=== PATIENT | female | born 1965 | race Hispanic/Latino ===

== ENCOUNTER 2018-10-17 15:47 | Emergency (ER) | payer BC ==
[2018-10-17 15:53] VITALS: BMI 28.3
[2018-10-17 15:56] VITALS: TEMP 98.6
[2018-10-17 16:34] VITALS: RESP 18
[2018-10-17] MEDS ORDERED: Lidocaine 1% 5ml Abboject ONE (16:47)
--- NOTE | 2018-10-17 17:43 | ED PDOC ---
Arrival/HPI - General Historian: Patient - History of Present Illness Narrative History of Present Illness (Text): Patient is a 53 yr old F with PMH anxiety who presents today after tripping while holding a glass which shattered and cut her left wrist. Patient states she did not hit her head or lose consciousness at the time of the incident. She denies an actual fall and indicates that it was " more like she tripped and the glass hit something and broke before she could regain her balance". Patient otherwise denies headache, dizziness, confusion, chest pain, shortness of breath, cough, abdominal pain, f/c, n/v, and numbness/weakness in extremities. She states she has been able to use and feel her hand normally throughout this time. She is concerned that there may be glass in the wound. 10/17/18 18:00 Time/Duration: Prior to Arrival, 1/2 hour Symptom Onset: Sudden Symptom Course: Improving (bleeding well controlled) Quality: Pressure Severity Level: 4 Context: Standing, Walking, Tripped <Chitra Fernandez - Last Filed: 10/17/18 17:39> <Nigel Varghese - Last Filed: 10/17/18 20:45> - General Chief Complaint: Abnormal Skin Integrity Past Medical History - Provider Review Nursing Documentation Reviewed: Yes - Infectious Disease Hx of Infectious Diseases: None - Reproductive Menopause: Yes - Cardiac Hx Cardiac Disorders: No - Pulmonary Hx Respiratory Disorders: No - Neurological Hx Neurological Disorder: No - HEENT Hx HEENT Disorder: No - Renal Hx Renal Disorder: No - Endocrine/Metabolic Hx Endocrine Disorders: No - Hematological/Oncological Hx Blood Disorders: No - Integumentary Hx Dermatological Disorder: No - Musculoskeletal/Rheumatological Hx Musculoskeletal Disorders: No - Gastrointestinal Hx Gastrointestinal Disorders: No - Genitourinary/Gynecological Hx Genitourinary Disorders: No - Psychiatric Hx Psychophysiologic Disorder: Yes Hx Anxiety: Yes Hx Substance Use: No <Chitra Fernandez - Last Filed: 10/17/18 17:39> Family/Social History - Physician Review Nursing Documentation Reviewed: Yes Family/Social History: Unknown Family HX Smoking Status: Never Smoked Hx Alcohol Use: Yes Frequency of alcohol use: Socially Hx Substance Use: No <Chitra Fernandez - Last Filed: 10/17/18 17:39> Allergies/Home Meds <Chitra Fernandez - Last Filed: 10/17/18 17:39> <Nigel Varghese - Last Filed: 10/17/18 20:45> Allergies/Adverse Reactions: Allergies No Known Allergies Allergy (Verified 10/17/18 15:59) Home Medications: Home Meds Medication Instructions Recorded Confirmed FLUoxetine [Prozac] 5 mg PO DAILY 10/17/18 10/17/18 Review of Systems - Physician Review All systems were reviewed & negative as marked: Yes - Review of Systems Constitutional: Normal. absent: Fatigue Respiratory: absent: SOB, Cough Cardiovascular: absent: Chest Pain Gastrointestinal: absent: Abdominal Pain Musculoskeletal: Other (left wrist pain). absent: Arthralgias, Joint Swelling Skin: Laceration Neurological: absent: Headache, Dizziness, Focal Weakness Endocrine: absent: Diaphoresis <Chitra Fernandez - Last Filed: 10/17/18 17:39> Physical Exam Vital Signs Temp Pulse Resp BP Pulse Ox 10/17/18 16:22 84 18 161/91 H 97 10/17/18 15:53 98.6 F 79 16 161/91 H 100 Temperature: Afebrile Blood Pressure: Hypertensive Pulse: Regular Respiratory Rate: Normal Appearance: Positive for: Well-Appearing, Non-Toxic, Comfortable Pain Distress: Mild Mental Status: Positive for: Alert and Oriented X 3 - Systems Exam Head: Present: Atraumatic, Normocephalic Extroacular Muscles: Present: EOMI Mouth: Present: Moist Mucous Membranes Neck: Present: Normal Range of Motion Respiratory/Chest: Present: Clear to Auscultation, Good Air Exchange. No: Respiratory Distress, Accessory Muscle Use Cardiovascular: Present: Regular Rate and Rhythm, Normal S1, S2. No: Murmurs Abdomen: No: Tenderness, Distention, Guarding Upper Extremity: Present: Normal ROM, NORMAL PULSES, Tenderness, Swelling, Neurovascularly Intact, Capillary Refill < 2s, Norm 2-Pt Discrimination, Other (laceration 1.5cm anterior wrist, normal stripe marker strength, sensation pulses and motor function intact). No: Cyanosis, Edema, Erythema, Temperature Abnormal ties, Deformity Lower Extremity: Present: Normal Inspection, NORMAL PULSES. No: Edema, CALF TENDERNESS Neurological: Present: GCS=15, CN II-XII Intact, Speech Normal, Motor Func Grossly Intact, Normal Sensory Function Skin: Present: Warm, Dry, Normal Color, Laceration (1.5 cm laceration to the anterior lateral aspect of the wrist). No: Rashes Psychiatric: Present: Alert, Oriented x 3, Normal Insight, Normal Concentration <Chitra Fernandez - Last Filed: 10/17/18 17:39> Vital Signs Temp Pulse Resp BP Pulse Ox 10/17/18 17:48 98.6 F 82 18 156/82 H 98 10/17/18 16:22 84 18 161/91 H 97 10/17/18 15:53 98.6 F 79 16 161/91 H 100 <Nigel Varghese - Last Filed: 10/17/18 20:45> Medical Decision Making ED Course and Treatment: impression: 53 yr old female with PMH anxiety who presents with left wrist laceration Plan: Left wrist XR evaluation/exploration for foreign body laceration repair 10/17/18 17:42 - RAD Interpretation Narrative RAD Interpretations (Text): Radiology Results Wrist X-Ray 10/17/18 16:00 IMPRESSION: No evidence of radiopaque foreign body. 10/17/18 17:59 Radiology Orders: 10/17/18 16:00 WRIST, LEFT 3 VIEWS [RAD] Stat <Emily Fernandezah - Last Filed: 10/17/18 17:39> ED Course and Treatment: 10/17/18 19:36 Impression: 53 year old female with PMH anxiety who presents today after tripping while holding a glass which shattered and cut her left wrist. In agreement with resident note which contains more details about the patient. Patient seen and evaluated with resident. Came up with plan and treatment together. Plan: Left wrist x-ray 10/17/18 16:00 Wrist x-ray reviewed by radiologist, IMPRESSION: No evidence of radiopaque foreign body. - RAD Interpretation Radiology Orders: 10/17/18 16:00 WRIST, LEFT 3 VIEWS [RAD] Stat <Nigel Varghese - Last Filed: 10/17/18 20:45> Procedure: Wound Repair - Time Performed Time Performed: 16:55 - Time Out Time Out: Side verified, Site verified, Patient ID confirmed, Sterile procedures obs. - Performed by Performed by: Mid-level Provider (resident) - Indications Indication(s):: Laceration - Location Location:: Left, Wrist Shape:: Linear Dimensions Length cm: 1.5 Depth:: Epidermis - Anesthetic Technique Anesthetic Technique: Local Local/Regional Anesthetic:: Lidocaine 1% - Wound Examination Wound Examination:: Contaminated (small piece of glass removed from wound when original dressng was removed, no glass remained on XR), Other (irrigated extensively with betadine and sterile saline) - Debris Debris:: Glass (removed prior to XR) - Irrigated Irrigated with ml of normal saline: 800 - Complexity Complexity:: Simple (one layer) - Wound repair method Sutures:: # (4), Size (4.0), Type (prolene), Technique (simple interrupted) - Patient tolerated procedure Patient Tolerated Procedure:: Well <Chitra Fernandez - Last Filed: 10/17/18 17:39> - PA / [employer] / Resident Statement MD/ has reviewed & agrees with the documentation as recorded. MD/ has examined the patient and agrees with the treatment plan. - Scribe Statement The provider has reviewed the documentation as recorded by the Scribe Joan Cam All medical record entries made by the Scribe were at my direction and personally dictated by me. I have reviewed the chart and agree that the record accurately reflects my personal performance of the history, physical exam, medical decision making, and the department course for this patient. I have also personally directed, reviewed, and agree with the discharge instructions and disposition. <Nigel Varghese - Last Filed: 10/17/18 20:45> Disposition/Present on Arrival - Present on Arrival Any Indicators Present on Arrival: No History of DVT/PE: No History of Uncontrolled Diabetes: No Urinary Catheter: No History of Decub. Ulcer: No History Surgical Site Infection Following: None - Disposition Have Diagnosis and Disposition been Completed?: Yes Disposition Time: 17:40 Patient Plan: Discharge <Chitra Fernandez - Last Filed: 10/17/18 17:39> <Nigel Varghese - Last Filed: 10/17/18 20:45> - Disposition Diagnosis: Laceration of left wrist without foreign body Disposition: HOME/ ROUTINE Condition: STABLE Discharge Instructions (ExitCare): Laceration Repair With Stitches (DC) Additional Instructions: please follow up with your primary car physician within 1 week of discharge for follow up and please have your stitches removed within 7-10 days of discharge. If your symptoms persist, recur or if new concerning symptoms arise please proceed immediately to the nearest ER for further evaluation. Referrals: PCP,NO [Primary Care Provider] - Follow up with primary Forms: HERMEL DELOR ([place]ran)
[2018-10-17 17:49] VITALS: BP 156/82; PULSE 82; O2SAT 98
--- NOTE | 2018-10-17 17:53 | RAD ---
Date of service: 10/17/2018 PROCEDURE: Left Wrist Radiographs. HISTORY: R/O FB COMPARISON: None. FINDINGS: BONES: Normal. No fracture. JOINTS: Normal. No dislocation. SOFT TISSUES: No evidence of radiopaque foreign body in the soft tissue. OTHER FINDINGS: None. IMPRESSION: No evidence of radiopaque foreign body.
== END 2018-10-17 17:54 | disposition home or self-care (01) ==
LOC: ED 15:47 → MERGE 15:47 → ED 17:54
DX: S61.512A Laceration without foreign body of left wrist, initial encounter (principal); W25.XXXA Contact with sharp glass, initial encounter